=== PATIENT | male | born 1965 ===

== ENCOUNTER 2023-04-02 20:09 | Outpatient (CLI) | payer BC, SELFPAY ==
--- NOTE | 2023-04-02 20:30 | CRLHL7_ITS ---
For Patients: As a result of the Century Cures Act, medical imaging exams and procedure reports are released immediately into your electronic medical record. You may view this report before your referring provider. If you have questions, please contact your health care provider. Indication: Weakness. Worsening pain. Technique: MRI of the cervical spine was performed without the use of intravenous contrast. Comparison: None relevant available. Findings: The vertebral body heights appear maintained without evidence of fracture. No discrete T1 hypointense marrow infiltrating process. [id number] multilevel disc height loss and desiccation. Fusion of the C6-7 vertebral bodies. No abnormal cord signal. C2-3: No spinal canal or neural foraminal narrowing. C3-4: Postsurgical changes of left laminoplasty. Disc bulge effaces the ventral thecal sac. Mild thecal sac narrowing overall. Moderately severe left and moderate right neural foraminal stenosis. C4-5: Postsurgical changes of a left laminoplasty. Thecal sac appears patent. Moderate to severe neural foraminal stenosis. C5-6: Postsurgical change of left laminoplasty. Thecal sac appears patent. Moderate neural foraminal stenosis. C6-7: Postsurgical changes of left laminoplasty. Spinal canal is patent. Mild neural foraminal narrowing.. C7-T1: Disc bulge resulting in moderate spinal canal narrowing. Moderately severe neural foraminal stenosis. Potential impingement of the C8 nerves. Impression: 1. Postsurgical changes of left laminoplasty at the C3 through C7 levels. 2. At C7-T1, moderate spinal canal with moderately severe neural foraminal stenosis. Potential impingement of the C8 nerves. 3. At C3-4, mild thecal sac narrowing with moderately severe left and moderate right neural foraminal stenosis. 4. Mild to moderate neural foraminal stenosis elsewhere. 5. No abnormal cord signal. Dictated by Marcos Cedeno MD @ 04/03/2023 1:29:14 PM (Electronically Signed)
== END 2023-04-02 20:10 | disposition home or self-care (01) ==
LOC: MRI 20:10
PROVIDERS: Visit Provider Specialist
DX: M54.12 Radiculopathy, cervical region (principal); M50.33 Other cervical disc degeneration, cervicothoracic region; M62.81 Muscle weakness (generalized)
CPT/HCPCS: 72141